=== PATIENT | male | born 1995 | race Caucasian/White ===

== ENCOUNTER 2022-02-09 18:49 | Emergency (ER) | payer OTHER ==
[2022-02-09 19:28] LABS: BASOPHIL 0.8 % (0-2); EOSINOPHIL 3.2 % (0-5); HCT 42.5 % (42.0-52.0); HGB 14.3 g/dl (13.2-18.0); LYMPHOCYTE 18.1 % (15-48); MCH 29.9 pg (25.0-31.0); MCHC 33.6 g/dL (32.0-36.0); MCV 88.7 fL (78.0-100.0); MPV 9.1 fL (6.0-9.5); NEUTROPHIL 66.2 % (41-80); NRBC 0; PLT 364 K/uL (150-400); RBC 4.79 M/uL (4.70-6.00); RDW 13.2 % (11.5-14.0); WBC 10.2 K/uL (4.0-10.5)
[2022-02-09 19:34] LABS: CREATININE 0.75 mg/dL (0.67-1.17); POTASSIUM 3.8 mmol/L (3.5-5.1)
[2022-02-09 19:53] LABS: INFLUENZA A NAA NEGATIVE (NEGATIVE)
[2022-02-09 20:00] LABS: CORONAVIRUS 2019 SARS-COV-2 POSITIVE (NEGATIVE)
== END 2022-02-09 20:49 | disposition home or self-care (01) ==
LOC: FER 18:49
PROVIDERS: Nurse Practitioner Family
DX: U07.1 COVID-19 (principal); M25.522 Pain in left elbow; I10 Essential (primary) hypertension; F17.210 Nicotine dependence, cigarettes, uncomplicated; Z28.310 Unvaccinated for COVID-19
CPT/HCPCS: 36415; 80048; 85025; 85379; J1100; J1885; J7030; U0002